=== PATIENT | male | born 1975 | race Caucasian/White ===

== ENCOUNTER 2016-09-08 15:27 | Observation (INO) | payer SELFPAY ==
[~2016-09-08] VITALS: Ht 177.8 cm; Wt 66.0 kg
[2016-09-08 15:28] VITALS: BP 113/64; PULSE 95; RESP 15; TEMP 98.2; O2SAT 96
[2016-09-08 15:47] VITALS: BP 109/57; PULSE 81; RESP 21; TEMP 98.5; O2SAT 100
[2016-09-08] MEDS ORDERED: SODIUM CHLORIDE 0.9% FLUSH 5 ML FLUSH IVF PRN ×2 (16:00→20:45)
[2016-09-08] MEDS ORDERED: SODIUM CHLOR 0.9% 1000 ML INJ 1,000 ML IV ONE (16:00)
--- NOTE | 2016-09-08 16:07 | PD ---
HPI Chief Complaint: Cold / Flu Symptoms Time Seen by Provider: 15:39 Travel History International Travel<30 days: No Contact w/Intl Traveler<30days: No History of Present Illness HPI Patient is a 40-year-old male who presents to emergency room with complaints of cough and congestion for the past 3 months. Patient reports that for the past few months, he has had a nonproductive cough, except for the past 3 days, his cough has been more productive and he had noticed specks of blood in his mucous. Reports that along with his cough, he has been having chest pain. Reports that every time he coughs, his chest hurts him. Reports that he was seen in [facility] on august 10 and was diagnosed with bronchitis as he did have a cough. Reports that he was prescribed Levaquin and was given scripts for antibiotics as well as steroids - reports that he never got the scripts filled because it cost too much. Reports that chest pain feels like a tight stabbing tearing sensation to his chest. Reports that he only has chest pains with his cough. Denies diaphoresis or nausea or vomiting with symptoms. Reports no recent travels/trips. Denies fever/chills. 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 Denies hx of cad, hypertension, hyperlipidemia. Denies hx of smoking or alcohol abuse. No family hx of early CAD or ID in the past. PFSH Past Medical History Arthritis: No Asthma: No Autoimmune Disease: No Blood Disorders: No Anxiety: No Depression: No Heart Rhythm Problems: No Cancer: No Cardiovascular Problems: No High Cholesterol: No Chemotherapy: No Chest Pain: No Congestive Heart Failure: No COPD: No Cerebrovascular Accident: No Diabetes: No Diminished Hearing: No Endocrine: No GERD: No Glaucoma: No Genitourinary: No Headaches: No Hepatitis: No Hiatal Hernia: No Immune Disorder: No Kidney Stones: No Musculoskeletal: No Neurologic: No Psychiatric: No Reproductive: No Respiratory: No Migraines: No Myocardial Infarction: No Radiation Therapy: No Renal Failure: No Seizures: No Sickle Cell Disease: No Sleep Apnea: No Thyroid Disease: No Ulcer: No Past Surgical History Abdominal Surgery: No AICD: No Appendectomy: No Arteriovenous Shunt: No Cardiac Surgery: No Cholecystectomy: No Ear Surgery: No Endocrine Surgery: No Eye Surgery: No Genitourinary Surgery: No Gynecologic Surgery: No Insulin Pump: No Joint Replacement: No Oral Surgery: No Pacemaker: No Thoracic Surgery: No Other Surgery: Yes (facial bone repair) Family History Family History: Negative Social History Alcohol Use: No Tobacco Use: No Substance Use: No Allergies-Medications (Allergen,Severity, Reaction): Coded Allergies: Tubbs Pepper (Verified Allergy, Mild, 06/21/16) rash Uncoded Allergies: RED AND YELLOW TUBBS PEPPERS (Allergy, Mild, 03/25/06) Reported Meds & Prescriptions Reported Meds & Active Scripts Active No Active Prescriptions or Reported Medications Review of Systems General / Constitutional: No: Fever Eyes: No: Visual changes HENT: No: Headaches Cardiovascular: Positive: Chest Pain or Discomfort, No: Diaphoresis Respiratory: Positive: Cough, Shortness of Breath, Hemoptysis, Pleuritic Pain, No: Night Sweats Gastrointestinal: No: Nausea, Vomiting, Diarrhea, Abdominal Pain Genitourinary: No: Dysuria Musculoskeletal: No: Pain Skin: No Rash Neurologic: No: Weakness Psychiatric: No: Depression Endocrine: No: Polydipsia Hematologic/Lymphatic: No: Easy Bruising Physical Exam Narrative GENERAL: NAD SKIN: Warm and dry. HEAD: Atraumatic. Normocephalic. EYES: No injection or drainage. ENT: No nasal bleeding or discharge. Mucous membranes pink and moist. NECK: Trachea midline. No JVD. CARDIOVASCULAR: Regular rate and rhythm. No murmur appreciated. RESPIRATORY: No accessory muscle use. Clear to auscultation. Breath sounds equal bilaterally. GASTROINTESTINAL: Abdomen soft, non-tender, nondistended. Hepatic and splenic margins not palpable. MUSCULOSKELETAL: No obvious deformities. No clubbing. No cyanosis. No edema. NEUROLOGICAL: Awake and alert. Normal speech. PSYCHIATRIC: Appropriate mood and affect; insight and judgment normal. Data Data Last Documented VS Vital Signs Date Time Temp Pulse Resp B/P Pulse Ox O2 Delivery O2 Flow Rate FiO2 09/08/16 17:39 98.6 93 14 100/56 99 Room Air Orders Electrocardiogram (09/08/16 15:50) Complete Blood Count With Diff (09/08/16 15:50) Comprehensive Metabolic Panel (09/08/16 15:50) Influenzae A/B Antigen (09/08/16 15:50) Chest, Single Ap (09/08/16 15:50) Ecg Monitoring (09/08/16 15:50) Iv Access Insert/Monitor (09/08/16 15:50) Oximetry (09/08/16 15:50) Sodium Chloride 0.9% Flush (Ns Flush) (09/08/16 16:00) B-Type Natriuretic Peptide (09/08/16 15:50) Ckmb (Isoenzyme) Profile (09/08/16 15:50) D-Dimer (09/08/16 15:50) Prothrombin Time / Inr (Pt) (09/08/16 15:50) Act Partial Throm Time (Ptt) (09/08/16 15:50) Troponin I (09/08/16 15:50) Sodium Chlor 0.9% 1000 Ml Inj (Ns 1000 M (09/08/16 16:00) Methylprednisolone So Succ Inj (Solumedr (09/08/16 16:15) Albuterol-Ipratropium Neb (Duoneb Neb) (09/08/16 16:15) CKMB (09/08/16 15:55) CKMB% (09/08/16 15:55) Cta Thor Abd Aorta W Iv C W3d (09/08/16 16:37) Us Leg Venous Doppler Bilat (09/08/16 ) Iohexol 350 Inj (Omnipaque 350 Inj) (09/08/16 17:55) Electrocardiogram (09/08/16 ) Aspirin (Aspirin) (09/08/16 19:15) Admit Order (Ed Use Only) (09/08/16 19:24) Labs Laboratory Tests Test 09/08/16 15:55 White Blood Count 5.3 TH/MM3 Red Blood Count 4.99 MIL/MM3 Hemoglobin 14.5 GM/DL Hematocrit 42.6 % Mean Corpuscular Volume 85.4 FL Mean Corpuscular Hemoglobin 29.1 PG Mean Corpuscular Hemoglobin 34.0 % Concent Red Cell Distribution Width 14.4 % Platelet Count 247 TH/MM3 Mean Platelet Volume 7.4 FL Neutrophils (%) (Auto) 56.2 % Lymphocytes (%) (Auto) 25.4 % Monocytes (%) (Auto) 14.4 % Eosinophils (%) (Auto) 3.5 % Basophils (%) (Auto) 0.5 % Neutrophils # (Auto) 3.0 TH/MM3 Lymphocytes # (Auto) 1.4 TH/MM3 Monocytes # (Auto) 0.8 TH/MM3 Eosinophils # (Auto) 0.2 TH/MM3 Basophils # (Auto) 0.0 TH/MM3 CBC Comment DIFF FINAL Differential Comment Prothrombin Time 11.0 SEC Prothromb Time International 1.0 RATIO Ratio Activated Partial 30.2 SEC Thromboplast Time D-Dimer Quantitative (PE/DVT) 0.32 MG/L FEU Sodium Level 138 MEQ/L Potassium Level 3.7 MEQ/L Chloride Level 102 MEQ/L Carbon Dioxide Level 28.2 MEQ/L Anion Gap 8 MEQ/L Blood Urea Nitrogen 14 MG/DL Creatinine 1.17 MG/DL Estimat Glomerular Filtration 69 ML/MIN Rate Random Glucose 78 MG/DL Calcium Level 8.7 MG/DL Total Bilirubin 0.6 MG/DL Aspartate Amino Transf 23 U/L (AST/SGOT) Alanine Aminotransferase 24 U/L (ALT/SGPT) Alkaline Phosphatase 94 U/L Total Creatine Kinase 490 U/L Creatine Kinase MB 2.0 NG/ML Creatine Kinase MB % 0.4 % Troponin I LESS THAN 0.02 NG/ML B-Type Natriuretic Peptide 4 PG/ML Total Protein 8.0 GM/DL Albumin 4.0 GM/DL MDM Medical Decision Making Medical Screen Exam Complete: Yes Emergency Medical Condition: Yes Interpretation(s) Vital Signs Date Time Temp Pulse Resp B/P Pulse Ox O2 Delivery O2 Flow Rate FiO2 09/08/16 15:28 98.2 95 15 113/64 96 Differential Diagnosis acs, pneumonia, malignancy, influenza, arrhythmia, TB, pneumothorax, PE, Aortic dissection Narrative Course patient is a 40 year old male who presents to ER with c/o of cough x 3 months. Reports that for the past 3 days, he has noticed streaks of blood in his mucous and has been having chest pain from coughing so much. Reports that his chest only hurts him when he coughs. VSS. EKG, lab work, xray of chest ordered. Will continue to monitor patient. cta ordered to evaluate for possible aortic dissection as patient describes his chest pain as a "tearing sensation to my chest" ekg with nsr at 75bpm, qt/qtc: 337/366, there is st seg elevation II, III, aVF, V4-v6, no reciprocal changes, pr depression n EKG - pt only with chest pain with cough, pt adamently denies chest pain at rest or without coughing. CE were ordered. I do not feel that patient is having a STEMI at this time given chest pain only occurs with cough. With recent history of untreated lung infection (was seen on aug 10 and was prescribed antibiotics which he didn't fill ) - most likely related to pericarditis vs. early repol. I have asked patient a number of times if he is having any chest pain at rest and patient adamantly denies this. cbc WBC 5.3 Hemoglobin 14.5 Hematocrit 42.6 Platelets 247 CMP Sodium 138 Chloride 102 Potassium 3.7 Carbon dioxide 28.2 BUN 14 Creatinine 1.17 Total CK 490 Troponin less than 0.02 Influenza A and B negative Last Impressions Aorta CTA 09/08/16 1637 Signed Impressions: Service Date/Time: Thursday, September 08, 2016 17:44 - CONCLUSION: Normal examination for a patient of this age. Alex Greenwood MD Chest X-Ray 09/08/16 1550 Signed Impressions: Service Date/Time: Thursday, September 08, 2016 16:33 - CONCLUSION: No acute disease. Alex Greenwood MD Lower Extremity Ultrasound 09/08/16 0000 Signed Impressions: Service Date/Time: Thursday, September 08, 2016 18:15 - CONCLUSION: Normal examination. Alex Greenwood MD Patient with no chest pain at rest, patient with abnormal EKG. I reviewed all labs and studies with pt in detail. Agrees to admission. Plan to admit to family practice service. Case reviewed with Dr. Garrison, except patient to service. Repeat EKG at 1920: Normal sinus rhythm at 74 beats for minute, QT/QTc 340/367, no st seg changes. Consideration for PE - Doppler ultrasound of legs were negative. CTA negative Diagnosis Primary Impression: Chest pain Qualified Code: R07.1 - Chest pain on breathing Additional Impression: ST segment changes on electrocardiogram Admitting Information Admitting Physician Requests: Admit Scripts No Active Prescriptions or Reported Meds Deanna Anderson DO Sep 08, 2016 16:07
[2016-09-08 16:15] LABS: BASOPHIL % 0.5 % (0.0-2.0); EOSINOPHIL # 0.2 TH/MM3 (0-0.4); EOSINOPHIL % 3.5 % (0.0-4.0); HEMATOCRIT 42.6 % (39.0-51.0); HEMO FLAGS DIFF FINAL; LYMPH % 25.4 % (9.0-44.0); LYMPHOCYTE # 1.4 TH/MM3 (1.0-4.8); MEAN CELL VOLUME 85.4 FL (80.0-100.0); MEAN CORPUSCULAR HEMOGLOBIN 29.1 PG (27.0-34.0); MONO % 14.4 % (0.0-8.0); NEUT % 56.2 % (16.0-70.0); PLATELET COUNT 247 TH/MM3 (150-450); RED BLOOD COUNT 4.99 MIL/MM3 (4.50-5.90); RED CELL DISTRIBUTION WIDTH 14.4 % (11.6-17.2); WHITE BLOOD COUNT 5.3 TH/MM3 (4.0-11.0)
[2016-09-08] MEDS ORDERED: RESP: ALBUTEROL 2.5 MG/IPRATROPIUM 0.5 MG NEB (SCH) INH ONE (16:15)
[2016-09-08] MEDS ORDERED: methylPREDNISolone SOD SUCC 125 MG/2 ML VIAL IVP ONE (16:15)
[2016-09-08 16:33] LABS: ALT (GPT) 24 U/L (12-78); ANION GAP 8 MEQ/L (5-15); APTT (PATIENT) 30.2 SEC (24.3-30.1); AST (GOT) 23 U/L (15-37); BICARBONATE 28.2 MEQ/L (21.0-32.0); BLOOD UREA NITROGEN 14 MG/DL (7-18); CHLORIDE 102 MEQ/L (98-107); GLOMERULAR FILTRATION RATE 69 ML/MIN (>89); POTASSIUM 3.7 MEQ/L (3.5-5.1); SODIUM (NA) 138 MEQ/L (136-145)
[2016-09-08 16:37] LABS: ALKALINE PHOSPHATASE 94 U/L (45-117); CREATINE KINASE 490 U/L (39-308); TOTAL BILIRUBIN ADULT 0.6 MG/DL (0.2-1.0)
--- NOTE | 2016-09-08 17:33 | RADRPT ---
EXAM DATE/TIME: 09/08/2016 16:33 [facility] COMPARISON: No previous studies available for comparison. INDICATIONS : Coughing up blood x1day. Pt has had a cough for 3 months. MEDICAL HISTORY : None. SURGICAL HISTORY : None. ENCOUNTER: Initial ACUITY: 1 day PAIN SCORE: 0/10 LOCATION: Bilateral chest FINDINGS: A single view of the chest demonstrates the lungs to be symmetrically aerated without evidence of mas s, infiltrate or effusion. The cardiomediastinal contours are unremarkable. Osseous structures are intact. CONCLUSION: No acute disease. Alex Greenwood MD on September 08, 2016 at 17:30 Board Certified Radiologist. This report was verified electronically.
[2016-09-08 17:39] VITALS: BP 100/56; PULSE 93; RESP 14; TEMP 98.6; O2SAT 99
[2016-09-08] MEDS ORDERED: IOHEXOL 350 MG/ML 10 ML VIAL (for RAD DIAG) IV ONE (17:55)
--- NOTE | 2016-09-08 18:37 | RADRPT ---
EXAM DATE/TIME: 09/08/2016 17:44 [facility] COMPARISON: No previous studies available for comparison. INDICATIONS : Coughing up blood; coughing X 3 months. IV CONTRAST: 95 cc Omnipaque 350 (iohexol) IV RADIATION DOSE: 25.48 CTDIvol (mGy) MEDICAL HISTORY : None SURGICAL HISTORY : None. ENCOUNTER: Initial ACUITY: 3 months PAIN SCALE: 4/10 LOCATION: chest TECHNIQUE: Volumetric scanning was performed using a multi-row detector CT scanner. The data was post processed with a variety of visualization algorithms including full volume maximum intensity projection, multi -planar sliding thin slab reformation, curved planar reformation, and surface rendering techniques. Using automated exposure control and adjustment of the mA and/or kV according to patient size, radiat ion dose was kept as low as reasonably achievable to obtain optimal diagnostic quality images. FINDINGS: LUNGS: There is no consolidation or pneumothorax. No concerning pulmonary nodule is visualized. No pleural fluid is present. MEDIASTINUM: No abnormally enlarged lymph nodes by CT criteria. No axillary or hilar abnormalities are identified. ABDOMEN: The liver and spleen are free of focal defects. The gallbladder and pancreas demonstrate no abnormali ty. The adrenal glands are normal. The kidneys demonstrate no evidence of solid renal mass or hydrone phrosis. No free fluid or abdominal masses are identified. No para-aortic adenopathy is seen. PELVIS: No evidence of free fluid or pelvic mass. No abnormally enlarged inguinal or retroperitoneal lymph no ginna are present. The bladder is unremarkable. THORACIC AORTA: The thoracic aortic root is normal with normal branching of the great vessels. There is no evidence of aneurysm or dissection. ABDOMINAL AORTA: The aorta is normal in caliber without aneurysm or dissection. The renal arteries are patent bilater ally. The proximal celiac and superior mesenteric arteries are patent and normal in diameter. PELVIC VESSELS: The internal iliac and external iliac vessels are patent without aneurysm or stenosis. CONCLUSION: Normal examination for a patient of this age. Alex Greenwood MD on September 08, 2016 at 18:25 Board Certified Radiologist. This report was verified electronically.
--- NOTE | 2016-09-08 19:02 | RADRPT ---
EXAM DATE/TIME: 09/08/2016 18:15 [facility] COMPARISON: No previous studies available for comparison. INDICATIONS : Thrombosis. MEDICAL HISTORY : Kidney transplant. SURGICAL HISTORY : Eye surgery. ENCOUNTER: Initial ACUITY: 1 day PAIN SCORE: 0/10 LOCATION: Bilateral legs. TECHNIQUE: Venous ultrasound of the left and right leg was performed from the inguinal ligament to the proximal calf. Real-time, color Doppler and spectral tracing, compression and augmentation techniques were us ed. FINDINGS: RIGHT LEG: There is normal compressibility of the deep venous system from the inguinal region to the proximal ca lf. No echogenic clot is seen in the lumen of the common femoral, femoral, popliteal, and posterior tibial veins. There is a normal response of the venous system to proximal and distal augmentation an d respiration. LEFT LEG: There is normal compressibility of the deep venous system from the inguinal region to the proximal ca lf. No echogenic clot is seen in the lumen of the common femoral, femoral, popliteal, and posterior tibial veins. There is a normal response of the venous system to proximal and distal augmentation an d respiration. CONCLUSION: Normal examination. Alex Greenwood MD on September 08, 2016 at 19:00 Board Certified Radiologist. This report was verified electronically.
[2016-09-08] MEDS ORDERED: ASPIRIN 325 MG TAB PO ONE (19:15)
[2016-09-08] MEDS: SODIUM CHLORIDE 0.9% FLUSH 5 ML FLUSH IVF SCH (20:44)
[2016-09-08 21:40] LABS: CREATINE KINASE 557 U/L (39-308)
--- NOTE | 2016-09-08 21:42 | HHI.HP ---
HPI Service Family Medicine Primary Care Physician No Primary Care Physician Admission Diagnosis Chest pain, abnormal ekg Diagnoses: International Travel<30 Days: No Contact w/Intl Traveler<30days: Yes Known Affected Area: No History of Present Illness 40-year-old homeless nonsmoking male with no past medical history presenting with a 3 to four-day history of pleuritic chest pain and one episode of hemoptysis. For the last couple months, he has had an intermittent dry cough. At one point in early August, he sought care at [facility] and was diagnosed with bronchitis, but cough has persisted. He denies any fevers or chills, night sweats. About 3 days ago, his cough became associated with a tearing chest pain. He also began having a burning chest pain on deep inspiration. He does not have chest pain at rest or when he is not coughing or breathing deeply. He has not had shortness of breath. Around the same time, he also experienced increasing upper respiratory symptoms including rhinorrhea and sneezing. The symptoms were not particularly concerning until this morning when he experienced a single episode of coughing up blood. The volume is unclear, but he says it is definitely less than a tablespoon, and he does not know whether it appeared to be just streaks of blood or coffee-ground like because "he spit it on the ground and didn't look at it". During all this time, he has not taken any medication to alleviate symptoms except Sudafed yesterday for the upper respiratory issues. He has been taking Rosado's cough drops about 3 bags daily to alleviate his cough. 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 (David Earl MD R1) Review of Systems Constitutional: DENIES: Fever Endocrine: DENIES: Polydipsia Eyes: COMPLAINS OF: Vision loss (Intermittent, right eye, after prior surgery) , DENIES: Blurred vision Ears, nose, mouth, throat: COMPLAINS OF: Nasal discharge, Running Nose, DENIES : Throat pain, Hoarseness Respiratory: COMPLAINS OF: Cough, Hemoptysis, DENIES: Sputum production, Shortness of breath Cardiovascular: COMPLAINS OF: Chest pain, DENIES: Palpitations, Dyspnea on Exertion, Lower Extremity Edema, Orthopnea Gastrointestinal: DENIES: Abdominal pain Genitourinary: DENIES: Dysuria Musculoskeletal: DENIES: Muscle aches Integumentary: DENIES: Rash Hematologic/lymphatic: DENIES: Bruising Neurologic: DENIES: Headache (David Earl MD R1) Past Family Social History Past Medical History No known chronic medical conditions Past Surgical History Orthopedic surgery on the right orbit due to traumatic fracture, pins and screws in place Reported Medications Cial[place] and Sudafed symptomatically, no chronic medications (David Earl MD R1) Allergies: Coded Allergies: Tubbs Pepper (Verified Allergy, Mild, 06/21/16) rash Uncoded Allergies: RED AND YELLOW TUBBS PEPPERS (Allergy, Mild, 03/25/06) Active Ordered Medications Current Medications Medications (Trade) Dose Ordered Sig/Nishant Route Start Time Stop Time Status Last Admin (NS Flush) 2 ml BID IVF 09/08/16 21:00 09/08/16 20:44 (NS Flush) 2 ml UNSCH PRN IVF 09/08/16 20:45 (Heparin Inj) 5,000 units Q8HR SQ 09/08/16 22:00 Family History Unknown family history (patient is the black sheep of the family) Social History Tobacco: Does not smoke Alcohol: Does not drink Drugs: Does not use illicit drugs Living: Lives in the back of his car 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 Cool and dry. Bilateral digital clubbing noted. HEAD: NC/AT EYES: PERRL. EOMI. No conjunctival injection or drainage. ENT: MMM, OP without erythema, tonsillar swelling, or exudate. NECK: Supple, no lymphadenopathy. No JVD. CARDIOVASCULAR: NRRR. Normal S1/S2. No murmur, rub, or gallop. CHEST: Reproducible chest pain on palpation of chest wall muscles. Lungs CTAB. No crackles or wheezes. GASTROINTESTINAL: Abdomen soft, non-distended, minimally tender to palpation in the central pelvis. No hepato-splenomegaly or palpable masses. MUSCULOSKELETAL: Extremities without cyanosis or edema. NEUROLOGICAL: Awake and alert. Cranial nerves II through XII grossly intact. Moves all extremities without difficulty. Normal speech. Laboratory Laboratory Tests Test 09/08/16 09/08/16 15:55 21:10 White Blood Count 5.3 Red Blood Count 4.99 Hemoglobin 14.5 Hematocrit 42.6 Mean Corpuscular Volume 85.4 Mean Corpuscular Hemoglobin 29.1 Mean Corpuscular Hemoglobin 34.0 Concent Red Cell Distribution Width 14.4 Platelet Count 247 Mean Platelet Volume 7.4 Neutrophils (%) (Auto) 56.2 Lymphocytes (%) (Auto) 25.4 Monocytes (%) (Auto) 14.4 Eosinophils (%) (Auto) 3.5 Basophils (%) (Auto) 0.5 Neutrophils # (Auto) 3.0 Lymphocytes # (Auto) 1.4 Monocytes # (Auto) 0.8 Eosinophils # (Auto) 0.2 Basophils # (Auto) 0.0 CBC Comment DIFF FINAL Differential Comment Prothrombin Time 11.0 Prothromb Time International 1.0 Ratio Activated Partial 30.2 Thromboplast Time D-Dimer Quantitative (PE/DVT) 0.32 Sodium Level 138 Potassium Level 3.7 Chloride Level 102 Carbon Dioxide Level 28.2 Anion Gap 8 Blood Urea Nitrogen 14 Creatinine 1.17 Estimat Glomerular Filtration 69 Rate Random Glucose 78 Calcium Level 8.7 Total Bilirubin 0.6 Aspartate Amino Transf 23 (AST/SGOT) Alanine Aminotransferase 24 (ALT/SGPT) Alkaline Phosphatase 94 Total Creatine Kinase 490 557 Creatine Kinase MB 2.0 Creatine Kinase MB % 0.4 Troponin I LESS THAN 0.02 LESS THAN 0.02 B-Type Natriuretic Peptide 4 Total Protein 8.0 Albumin 4.0 Date/Time Procedure Status Source Growth 09/08/16 15:55 Influenza Types A,B Antigen ([place]) - Final Complete Nasal Aspirate NEGATIVE FOR FLU A AND B ANTIGEN.... (David Earl MD R1) Result Diagram: 09/08/16 1555 09/08/16 1555 Imaging Last Impressions Aorta CTA 09/08/16 1637 Signed Impressions: Service Date/Time: Thursday, September 08, 2016 17:44 - CONCLUSION: Normal examination for a patient of this age. Alex Greenwood MD Chest X-Ray 09/08/16 1550 Signed Impressions: Service Date/Time: Thursday, September 08, 2016 16:33 - CONCLUSION: No acute disease. Alex Greenwood MD Lower Extremity Ultrasound 09/08/16 0000 Signed Impressions: Service Date/Time: Thursday, September 08, 2016 18:15 - CONCLUSION: Normal examination. Alex Greenwood MD (David Earl MD R1) Assessment and Plan Assessment and Plan 40-year-old homeless nonsmoking male with no past medical history presenting with: #1 chest pain Given association with cough and reproducibility of chest pain on chest wall exam, likely etiology is costochondritis. Initial EKG showing questionable diffuse ST segment elevation approximately 1 mm which could indicate pericarditis, however no other clinical features apart from chest pain. No suspicion of cocaine abuse. Initial troponin less than 0.02 Electrolytes within normal limits Chest x-ray showing no acute pulmonary or cardiac process CTA aorta negative for aortic dissection D-dimer below age-adjusted cut-off * Ibuprofen 800 mg Q8H for pain control * Trend troponin, EKG to rule out ACS and myopericarditis #2 cough with hemoptysis Has been going on for 1-2 months, now with small-volume hemoptysis. Likely etiology is lingering viral cough versus GERD versus postnasal drip from allergy symptoms. Chest x-ray showing no acute pulmonary process Hemoglobin within normal limits * Repeat hemoglobin in the morning * Tessalon for cough suppression as needed * Rosado's for symptomatic relief of throat irritation * PPD to rule out tuberculosis (although chest x-ray negative, could still have TB given risk factors and symptomatology) #3 digital clubbing Likely idiopathic in setting of no known cardiopulmonary disease and relatively benign exam BNP 4 * If respiratory symptoms worsen, consider further workup #4 FEN/PPX Fluids: PO only Elecs: Monitor and replete PRN Nutrition: Diet regular basic DVT: Heparin 5000 units SQ Q8H sdw Dr. Sameer Garrison Code Status Full code (David Earl MD R1) Attending Attestation THIS CASE WAS DISCUSSED WITH THE RESIDENT PHYSICIAN. I HAVE REVIEWED THE RECORD AND AGREE WITH THE ABOVE NOTE AND PLAN OF CARE WAS DISCUSSED. I HAVE AUTHORIZED THE ORDER FOR PLACEMENT IN OUT-PATIENT OBSERVATION STATUS. (Garry Mukherjee MD) Problem List: (1) Chest pain Status: Acute (2) Cough with hemoptysis Status: Acute (3) Clubbing of fingers Status: Acute (David Earl MD R1) Problem Qualifiers (1) Chest pain: Qualified Code: R07.1 - Chest pain on breathing David Earl MD R1 Sep 08, 2016 21:42 Garry Mukherjee MD Sep 09, 2016 11:38
[2016-09-08 21:48] VITALS: BP 141/92; PULSE 72; RESP 18; O2SAT 96
[2016-09-08 21:53] LABS: CKMB 2.6 NG/ML (0.5-3.6)
[2016-09-08] MEDS ORDERED: MENTHOL LOZENGE BUCCAL PRN (22:00)
[2016-09-08] MEDS ORDERED: BENZONATATE 100 MG CAP PO PRN (22:00)
[2016-09-08] MEDS: HEPARIN SODIUM - SQ 10,000 UNITS/ML VIAL SQ SCH (22:05)
[2016-09-08 22:15] VITALS: O2SAT 98
[2016-09-08] MEDS: IBUPROFEN 800 MG TAB PO SCH (22:15)
[2016-09-08 22:58] VITALS: BP 101/55; PULSE 75; RESP 20; TEMP 98.6; O2SAT 95
[2016-09-09] VITALS: PULSE 68
[2016-09-09 04:00] VITALS: BP 104/54; PULSE 68; RESP 18; TEMP 97.8; O2SAT 97
[2016-09-09] MEDS: IBUPROFEN 800 MG TAB PO SCH ×2 (05:35→13:54)
[2016-09-09] MEDS: HEPARIN SODIUM - SQ 10,000 UNITS/ML VIAL SQ SCH ×2 (05:35→13:55)
[2016-09-09 05:58] LABS: EOSINOPHIL % 0.1 % (0.0-4.0); HEMO FLAGS DIFF FINAL; LYMPH % 11.5 % (9.0-44.0); LYMPHOCYTE # 0.7 TH/MM3 (1.0-4.8); MEAN CELL VOLUME 85.9 FL (80.0-100.0); MEAN CORPUSCULAR HEMOGLOBIN 28.9 PG (27.0-34.0); MEAN CORPUSCULAR HGB CONC 33.6 % (32.0-36.0); MONO % 2.8 % (0.0-8.0); NEUT % 85.6 % (16.0-70.0); PLATELET COUNT 235 TH/MM3 (150-450); RED BLOOD COUNT 4.66 MIL/MM3 (4.50-5.90); RED CELL DISTRIBUTION WIDTH 14.6 % (11.6-17.2); WHITE BLOOD COUNT 5.9 TH/MM3 (4.0-11.0)
[2016-09-09 06:28] LABS: ANION GAP 8 MEQ/L (5-15); BICARBONATE 26.8 MEQ/L (21.0-32.0); BLOOD UREA NITROGEN 15 MG/DL (7-18); CHLORIDE 105 MEQ/L (98-107); CREATINE KINASE 582 U/L (39-308); GLOMERULAR FILTRATION RATE 90 ML/MIN (>89); HDL CHOLESTEROL 38.4 MG/DL (40.0-60.0); LDL CHOLESTEROL 176 MG/DL (0-99); POTASSIUM 4.7 MEQ/L (3.5-5.1); SODIUM (NA) 140 MEQ/L (136-145)
[2016-09-09 06:54] LABS: CKMB 2.6 NG/ML (0.5-3.6)
[2016-09-09 07:31] VITALS: PULSE 69
[2016-09-09] MEDS: SODIUM CHLORIDE 0.9% FLUSH 5 ML FLUSH IVF SCH (09:08)
[2016-09-09] MEDS ORDERED: BENZ100 PO (09:20)
--- NOTE | 2016-09-09 09:22 | HHI.DCPOC ---
Discharge Care Plan Diagnosis: (1) Cough with hemoptysis Goals to Promote Your Health * To prevent worsening of your condition and complications * To maintain your health at the optimal level Directions to Meet Your Goals Take your medications as prescribed Follow your dietary instruction Follow activity as directed Keep your appointments as scheduled Take your immunizations and boosters as scheduled If your symptoms worsen call your PCP, if no PCP go to Urgent Care Center or Emergency Room Smoking is Dangerous to Your Health. Avoid second hand smoke Call the 24-hour hour crisis hotline for domestic abuse at [place] Smith MD R3 Sep 09, 2016 09:22
[2016-09-09 09:27] VITALS: BP 86/49; PULSE 68; RESP 18; TEMP 97.2; O2SAT 98
[2016-09-09 09:47] VITALS: O2SAT 95
[2016-09-09] MEDS ORDERED: RESP: ALBUTEROL 2.5 MG/IPRATROPIUM 0.5 MG NEB (PRN) NEB (10:00)
[2016-09-09] MEDS ORDERED: methylPREDNISolone SOD SUCC 40 MG/1 ML VIAL IV PUSH ONE (10:30)
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
--- NOTE | 2016-09-09 11:46 | EKG ---
Date Performed: 09/08/2016 Time Performed: 21:18:23 PTAGE: 40 years EKG: Sinus rhythm WITH SINUS ARRHYTHMIA EARLY REPOLARIZATION BORDERLINE ECG NO PREVIOUS TRACING DOCTOR: Jose Manuel Goddard Interpretating Date/Time 09/09/2016 11:43:07
--- NOTE | 2016-09-09 11:47 | EKG ---
Date Performed: 09/08/2016 Time Performed: 19:20:06 PTAGE: 40 years EKG: Sinus rhythm NORMAL ECG PREVIOUS TRACING : 09/08/2016 16.20 DOCTOR: Jose Manuel Goddard Interpretating Date/Time 09/09/2016 11:44:28
--- NOTE | 2016-09-09 11:50 | EKG ---
Date Performed: 09/08/2016 Time Performed: 16:20:04 PTAGE: 40 years EKG: Sinus rhythm ST ELEVATION, PROBABLY EARLY REPOLARIZATION BORDERLINE ECG NO PREVIOUS TRACING DOCTOR: Jose Manuel Goddard Interpretating Date/Time 09/10/2016 07:28:39
[2016-09-09] MEDS ORDERED: LORA-361 PO (11:51)
[2016-09-09 11:52] VITALS: BP 90/52; PULSE 60; RESP 18; TEMP 96.7; O2SAT 98
[2016-09-09] MEDS ORDERED: PANT20 PO (11:53)
[2016-09-09] MEDS ORDERED: IBUP800T23 PO ×2 (16:34→16:35)
[2016-09-10] MEDS ORDERED: PANTOPRAZOLE SOD 20 MG DELAYED RELEASE TAB PO SCH (09:00)
[2016-09-10] MEDS ORDERED: LORATADINE 10 MG TAB PO SCH (09:00)
[2016-09-10] MEDS ORDERED: PNEUMOCOCCAL POLYVALENT INJ 25 MCG/0.5 ML SYR IM ONE (10:00)
[2016-09-10] MEDS ORDERED: INFLUENZA VIRUS VACCINE (QUADRIVALENT) 0.5 ML SYR IM ONE (10:00)
[2016-09-11 15:46] LABS: MITOGEN MINUS NIL RESULT 7.16 IU/mL (()); NIL RESULT 0.02 IU/mL (()); QUANTIFERON TB GOLD RESULT Negative (Negative)
== END 2016-09-09 16:50 | disposition home or self-care (01) ==
LOC: NEPE 15:27 → NEDA 19:26 → INTOOBSV 19:26 → NEPGCP 22:42 → NEPHCDU 09-09 02:18 → UNDODISIN 09-09 16:50
PROVIDERS: ADMIT Family Medicine; ATTEND Family Medicine
DX: R07.1 Chest pain on breathing (principal); R94.31 Abnormal electrocardiogram [ECG] [EKG]; R04.2 Hemoptysis; R68.3 Clubbing of fingers; Z59.0 Homelessness
CPT/HCPCS: 71010; 71275; 74174; 80048; 80053; 80061; 82550; 82552; 83880; 84443; 84484; 85025; 85379; 85610; 85730; 86480; 87804; 93005; 93970; 94664; 96361; 96374; 97163; 99285; G0378; J1644; J2920; J2930; J7030; Q9967

== ENCOUNTER 2016-10-21 18:07 | Emergency (ER) | payer SELFPAY ==
[~2016-10-21 18:07] MED LIST: BENZ100 PO; IBUP800T23 PO; LORA-361 PO; PANT20 PO
[2016-10-21 18:50] VITALS: BP 108/58; PULSE 72; RESP 18; TEMP 98.4; O2SAT 96
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
[2016-10-21] MEDS ORDERED: KETOROLAC TROMETHAMINE 60 MG/2 ML (IM) VIAL IM ONE (19:00)
[2016-10-21] MEDS ORDERED: ORPHENADRINE INJ 60 MG/2 ML AMP IM ONE (19:00)
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
[2016-10-21] MEDS ORDERED: DICL50TA PO (20:07)
[2016-10-21] MEDS ORDERED: ROBA750T PO (20:07)
== END 2016-10-21 21:11 | disposition home or self-care (01) ==
LOC: NEPA 18:07
DX: S16.1XXA Strain of muscle, fascia and tendon at neck level, initial encounter (principal); M54.5 Low back pain; V43.52XA Car driver injured in collision with other type car in traffic accident, initial encounter; Y93.89 Activity, other specified; Y92.410 Unspecified street and highway as the place of occurrence of the external cause; Y99.9 Unspecified external cause status
CPT/HCPCS: 72072; 72100; 72125; 96372; 99284; J1885; J2360

== ENCOUNTER 2017-02-09 18:24 | Emergency (ER) | payer SELFPAY ==
[~2017-02-09 18:24] MED LIST changes: +DICL50TA PO; +ROBA750T PO
[2017-02-09 18:26] VITALS: BP 118/60; PULSE 109; RESP 17; TEMP 103; O2SAT 97
[2017-02-09 19:28] LABS: AUTOMATED NEUTROPHIL # 7.2 TH/MM3 (1.8-7.7); BASOPHIL % 0.3 % (0.0-2.0); EOSINOPHIL % 0.1 % (0.0-4.0); HEMATOCRIT 43.2 % (39.0-51.0); HEMO FLAGS DIFF FINAL; LYMPH % 10.8 % (9.0-44.0); MEAN CELL VOLUME 84.6 FL (80.0-100.0); MEAN CORPUSCULAR HGB CONC 34.3 % (32.0-36.0); MONO % 8.6 % (0.0-8.0); NEUT % 80.2 % (16.0-70.0); PLATELET COUNT 230 TH/MM3 (150-450); RED CELL DISTRIBUTION WIDTH 14.3 % (11.6-17.2)
[2017-02-09 19:53] LABS: BLOOD, URINE NEG (NEG); COMMENT (UR) CULT NOT INDICATED; CULTURE IF INDICATED CULT NOT INDICATED; GLUCOSE,URINE NEG (NEG); KETONE, URINE NEG (NEG); MUCUS URINE FEW /lpf (OCC); NITRITE,URINE NEG (NEG); SQUAMOUS EPITHELIAL CELL URINE <1 /hpf (0-5); URINE COLOR YELLOW (YELLW/STRAW)
[2017-02-09 19:55] LABS: ANION GAP 9 MEQ/L (5-15); AST (GOT) 24 U/L (15-37); BICARBONATE 26.4 MEQ/L (21.0-32.0); BLOOD UREA NITROGEN 10 MG/DL (7-18); CHLORIDE 99 MEQ/L (98-107); GLOMERULAR FILTRATION RATE 56 ML/MIN (>89); POTASSIUM 3.7 MEQ/L (3.5-5.1); SODIUM (NA) 134 MEQ/L (136-145)
[2017-02-09 19:56] LABS: ALT (GPT) 36 U/L (12-78)
[2017-02-09 19:58] LABS: ALKALINE PHOSPHATASE 90 U/L (45-117); TOTAL BILIRUBIN ADULT 0.9 MG/DL (0.2-1.0)
--- NOTE | 2017-02-09 20:21 | PD ---
HPI Chief Complaint: Fever Time Seen by Provider: 20:18 Travel History International Travel<30 days: No Contact w/Intl Traveler<30days: No Traveled to known affect area: No History of Present Illness HPI The patient is a 41 year old male who presents to the [facility] emergency department with a history of fever, cough, glands swelling and tenderness in the anterior upper neck, and sore throat that began 2 days ago. The patient arrives with a fever, MAXIMUM TEMPERATURE of 103. The patient denies taking any fever reducers over the last 2 days. He reports that he has been staying well-hydrated. He reports that his cough is productive, however he has not looked at what color the sputum is. 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 He denies having any known sick contacts. On review of systems, the patient denies any neck pain, chest pain, shortness of breath, abdominal pain, vomiting, diarrhea, urinary symptoms, or neurologic symptoms. PFSH Past Medical History Narrative Medical The patient's past medical history is reportedly none. Arthritis: No Asthma: No Autoimmune Disease: No Blood Disorders: No Anxiety: No Depression: No Heart Rhythm Problems: No Cancer: No Cardiovascular Problems: No High Cholesterol: No Chemotherapy: No Chest Pain: No Congestive Heart Failure: No COPD: No Cerebrovascular Accident: No Diabetes: No Diminished Hearing: No Endocrine: No GERD: No Glaucoma: No Genitourinary: No Headaches: No Hepatitis: No Hiatal Hernia: No Immune Disorder: No Kidney Stones: No Musculoskeletal: No Neurologic: No Psychiatric: No Reproductive: No Respiratory: No Migraines: No Myocardial Infarction: No Radiation Therapy: No Renal Failure: No Seizures: No Sickle Cell Disease: No Sleep Apnea: No Thyroid Disease: No Ulcer: No Past Surgical History Narrative Surgical The patient's past surgical history is significant for an eye surgery. Abdominal Surgery: No AICD: No Appendectomy: No Arteriovenous Shunt: No Cardiac Surgery: No Cholecystectomy: No Ear Surgery: No Endocrine Surgery: No Eye Surgery: Yes Genitourinary Surgery: No Gynecologic Surgery: No Insulin Pump: No Joint Replacement: No Oral Surgery: No Pacemaker: No Thoracic Surgery: No Other Surgery: Yes (facial bone repair) Social History Alcohol Use: No Tobacco Use: No Substance Use: No Allergies-Medications (Allergen,Severity, Reaction): Coded Allergies: Tubbs Pepper (Verified Allergy, Mild, 06/21/16) rash Uncoded Allergies: RED AND YELLOW TUBBS PEPPERS (Allergy, Mild, 03/25/06) Reported Meds & Prescriptions Reported Meds & Active Scripts Active Robaxin (Methocarbamol) 750 Mg Tab 750 Mg PO TID PRN Diclofenac Potassium 50 Mg Tab 50 Mg PO TID PRN Ibuprofen 800 Mg Tab 800 Mg PO Q8HR PRN Protonix (Pantoprazole Sodium) 20 Mg Tab 20 Mg PO DAILY Claritin (Loratadine) 10 Mg Tab 10 Mg PO DAILY Tessalon Perles (Benzonatate) 100 Mg Cap 100 Mg PO TID PRN Review of Systems Except as stated in HPI: all other systems reviewed are Neg General / Constitutional: Positive: Fever, Chills Eyes: No: Visual changes HENT: Positive: Sore Throat, Congestion, No: Headaches, Rhinorrhea, Neck Stiffness, Neck Pain Cardiovascular: No: Chest Pain or Discomfort Respiratory: Positive: Cough, No: Shortness of Breath Gastrointestinal: No: Abdominal Pain Genitourinary: No: Dysuria Musculoskeletal: No: Pain Skin: No Rash Neurologic: No: Weakness, Focal Abnormalities, Change in Mentation, Slurred Speech, Sensory Disturbance Psychiatric: No: Depression Endocrine: No: Polydipsia Hematologic/Lymphatic: No: Easy Bruising Physical Exam Narrative General: The patient is a well-developed well-nourished male in no acute distress. Head and Neck exam: Head is normocephalic atraumatic. Eyes: EOMI, pupils are equal round and reactive to light. Nose: Midline septum with pink mucous membranes Mouth: Dentition unremarkable. Moist mucus membranes. Posterior oropharynx is mildly erythematous. No tonsillar hypertrophy. No exudates. Uvula midline. Airway patent. Neck: The patient has proximal anterior cervical lymphadenopathy with tenderness on palpation. No nuchal rigidity. No thyromegaly. Cardiovascular: Regular rate and rhythm without murmurs, gallops, or rubs. Lungs: Clear to auscultation bilaterally. No wheezes, rhonchi, or rales. Abdomen: Soft, without tenderness to palpation in all 4 quadrants of the abdomen. No guarding, rebound, or rigidity. Normal bowel sounds are audible. No tenderness on palpation of McBurney's point. Negative Berrios's sign. Extremities: No clubbing, cyanosis, or edema. 2+ pulses in all 4 extremities. No calf tenderness on palpation. Back: No spinous process tenderness to palpation. No costovertebral angle tenderness to palpation. Neurologic Exam: Grossly nonfocal. Skin Exam: No rash noted. Intact skin that is warm and dry. Data Data Last Documented VS Vital Signs Date Time Temp Pulse Resp B/P Pulse Ox O2 Delivery O2 Flow Rate FiO2 02/09/17 18:26 103.0 109 17 118/60 97 Orders Complete Blood Count With Diff (02/09/17 18:29) Comprehensive Metabolic Panel (02/09/17 18:29) Urinalysis - C+S If Indicated (02/09/17 18:29) Lactic Acid Sepsis Protocol (02/09/17 18:29) Blood Culture (02/09/17 18:29) Iv Access Insert/Monitor (02/09/17 18:29) Influenzae A/B Antigen (02/09/17 20:19) Chest, Single Ap (02/09/17 20:19) Strep Culture (Group A) (02/09/17 20:47) Group A Rapid Strep Screen (02/09/17 20:58) Sodium Chlor 0.9% 1000 Ml Inj (Ns 1000 M (02/09/17 21:45) Acetaminophen (Tylenol) (02/09/17 21:45) Strep Culture (Group A) (02/09/17 21:00) Labs Laboratory Tests Test 02/09/17 02/09/17 18:45 18:50 Urine Color YELLOW Urine Turbidity CLEAR Urine pH 7.0 Urine Specific [place] 1.028 Urine Protein 30 mg/dL Urine Glucose (UA) NEG mg/dL Urine Ketones NEG mg/dL Urine Occult Blood NEG Urine Nitrite NEG Urine Bilirubin NEG Urine Urobilinogen 4.0 MG/DL Urine Leukocyte Esterase NEG Urine RBC 1 /hpf Urine WBC 4 /hpf Urine Squamous Epithelial <1 /hpf Cells Urine Mucus FEW /lpf Microscopic Urinalysis Comment CULT NOT INDICATED White Blood Count 9.0 TH/MM3 Red Blood Count 5.10 MIL/MM3 Hemoglobin 14.8 GM/DL Hematocrit 43.2 % Mean Corpuscular Volume 84.6 FL Mean Corpuscular Hemoglobin 29.0 PG Mean Corpuscular Hemoglobin 34.3 % Concent Red Cell Distribution Width 14.3 % Platelet Count 230 TH/MM3 Mean Platelet Volume 7.6 FL Neutrophils (%) (Auto) 80.2 % Lymphocytes (%) (Auto) 10.8 % Monocytes (%) (Auto) 8.6 % Eosinophils (%) (Auto) 0.1 % Basophils (%) (Auto) 0.3 % Neutrophils # (Auto) 7.2 TH/MM3 Lymphocytes # (Auto) 1.0 TH/MM3 Monocytes # (Auto) 0.8 TH/MM3 Eosinophils # (Auto) 0.0 TH/MM3 Basophils # (Auto) 0.0 TH/MM3 CBC Comment DIFF FINAL Differential Comment Sodium Level 134 MEQ/L Potassium Level 3.7 MEQ/L Chloride Level 99 MEQ/L Carbon Dioxide Level 26.4 MEQ/L Anion Gap 9 MEQ/L Blood Urea Nitrogen 10 MG/DL Creatinine 1.40 MG/DL Estimat Glomerular Filtration 56 ML/MIN Rate Random Glucose 96 MG/DL Lactic Acid Level 2.0 mmol/L Calcium Level 9.2 MG/DL Total Bilirubin 0.9 MG/DL Aspartate Amino Transf 24 U/L (AST/SGOT) Alanine Aminotransferase 36 U/L (ALT/SGPT) Alkaline Phosphatase 90 U/L Total Protein 8.8 GM/DL Albumin 4.1 GM/DL MDM Medical Decision Making Medical Screen Exam Complete: Yes Emergency Medical Condition: Yes Medical Record Reviewed: Yes Interpretation(s) Last Impressions Chest X-Ray 02/09/172018 Signed Impressions: Service Date/Time: Thursday, February 09, 2017 20:40 - CONCLUSION: No acute disease. Dillon Pulido MD Differential Diagnosis Influenza, versus pneumonia, versus strep pharyngitis, versus viral syndrome Narrative Course During the course of the patients emergency department visit, the patients history, examination, and differential diagnosis were reviewed with the patient. The patient had IV access obtained and blood work sent for analysis. The patient was placed on a cardiac surgeon with oximetry and blood pressure monitoring. The patient was initially provided normal saline 1 L IV fluid bolus. Tylenol 650 by mouth times one was provided for fever. The patients laboratory studies were reviewed and remarkable for a white count of 9.0, hemoglobin 14.8, platelets 230 with 80.2 neutrophils, monocytes 8.6, CMP is remarkable for sodium of 134, creatinine 1.40, GFR 56, total protein 8.8 , lactic acid 2.0, urinalysis shows 30 protein, 4 urobilinogen, rapid strep test is negative. Radiology studies were reviewed and remarkable for a chest x-ray shows no acute abnormality. The patient was given a prescription for antibiotic to hold onto and if he continues to have persistent fevers, or his cough becomes productive of yellow- green sputum, the patient was instructed to start the antibiotic. In the meantime, he is given a prescription for benzonatate capsules to be taken as needed for cough. The patient is resting comfortably and feels better, is alert and in no distress. The patients results and examination findings were discussed with the patient. The repeat examination is unremarkable and benign. The history, exam, diagnostic testing, and current condition do not suggest any significant pathology to warrant further testing, continued ED treatment, admission, or surgical evaluation at this point. The vital signs have been stable. The patient does not have uncontrollable pain, intractable vomiting, or other significant symptoms. The patient's condition is stable and appropriate for discharge. The patient will pursue further outpatient evaluation with a primary care physician or other designated or consulting physician as indicated in the discharge instructions. The patient expressed understanding and was agreeable with this plan. Diagnosis Primary Impression: Upper respiratory infection Qualified Code: J06.9 - Upper respiratory tract infection, unspecified type Additional Impression: Fever Qualified Code: R50.81 - Fever in other diseases Referrals: [facility] 3 days Primary Care Physician 3 days Patient Instructions: Fever in Adults (ED), General Instructions, Upper Respiratory Infection (ED) Med/Other Pt SpecificInfo: Prescription(s) given Scripts Benzonatate 100 Mg [id number] Mg PO TID PRN (COUGH) #15 CAP Ref 0 Prov:Lorrie Garland MD 02/09/17 Doxycycline Hyclate 100 Mg [id number] Mg PO BID #20 CAP Ref 0 Prov:Lorrie Garland MD 02/09/17 Disposition: 01 DISCHARGE HOME Condition: Stable Lorrie Garland MD Feb 09, 2017 20:21
--- NOTE | 2017-02-09 21:05 | RADRPT ---
EXAM DATE/TIME: 02/09/2017 20:40 [place] COMPARISON: CTA THORACIC ABDOMINAL AORTA W 3D RECON, September 08, 2016, 17:44. CHEST SINGLE AP, September 08 7, 16:33. INDICATIONS : Fever MEDICAL HISTORY : None. SURGICAL HISTORY : None. ENCOUNTER: Initial ACUITY: 1 day PAIN SCORE: 0/10 LOCATION: Bilateral chest FINDINGS: A single view of the chest demonstrates the lungs to be symmetrically aerated without evidence of mas s, infiltrate or effusion. The cardiomediastinal contours are unremarkable. Osseous structures are intact. CONCLUSION: No acute disease. Dillon Pulido MD on February 09, 2017 at 21:02 Board Certified Radiologist. This report was verified electronically.
[2017-02-09] MEDS ORDERED: ACETAMINOPHEN 325 MG TAB PO ONE (21:45)
[2017-02-09] MEDS ORDERED: SODIUM CHLOR 0.9% 1000 ML INJ 1,000 ML IV ONE (21:45)
[2017-02-09] MEDS ORDERED: BENZ1CAP8 PO (22:09)
[2017-02-09] MEDS ORDERED: DOXY100C PO (22:09)
== END 2017-02-09 22:53 | disposition home or self-care (01) ==
LOC: NEPE 18:24
DX: J06.9 Acute upper respiratory infection, unspecified (principal); Z79.899 Other long term (current) drug therapy
CPT/HCPCS: 71010; 80053; 81001; 83605; 85025; 87040; 87081; 87804; 87880; 96360; 99284; J7030

== ENCOUNTER 2017-12-04 10:10 | Emergency (ER) | payer SELFPAY ==
[~2017-12-04 10:10] MED LIST changes: +BENZ1CAP54 PO; +DOXY100C PO; +IBUP1TAB7 PO; -IBUP800T23 PO
[2017-12-04 10:14] VITALS: BP 103/59; PULSE 70; RESP 14; TEMP 98.4; O2SAT 98
--- NOTE | 2017-12-04 12:03 | PD ---
HPI Chief Complaint: GI Complaint Time Seen by Provider: 11:11 Travel History International Travel<30 days: No Contact w/Intl Traveler<30days: No Traveled to known affect area: No History of Present Illness HPI 42-year-old male that presents to the ED for evaluation of diarrhea. Per patient he had diarrhea all last night. Per patient started on the afternoon and then needs and around 4:00 in the morning. Per patient he had no cramping or pain. Per patient the diarrhea is greenish. Per patient he is never had this before. He denies any other medical issues. No nausea or vomiting. No fevers chills or sweats. Per patient he has not eaten anything new. Per patient he is mainly concerned that he may have an infectious etiology of his diarrhea and he is concerned that he may need antibiotics. He denies any chest pain or shortness of breath. No urinary issues. Per patient the stool is somewhat liquidy. Patient denies eating anything new. No recent travel. Per patient his diet has not changed. He denies any pain. PFSH Past Medical History Arthritis: No Asthma: No Autoimmune Disease: No Blood Disorders: No Anxiety: No Depression: No Heart Rhythm Problems: No Cancer: No Cardiovascular Problems: No High Cholesterol: No Chemotherapy: No Chest Pain: No Congestive Heart Failure: No COPD: No Cerebrovascular Accident: No Diabetes: No Diminished Hearing: No Endocrine: No GERD: No Glaucoma: No Genitourinary: No Headaches: No Hepatitis: No Hiatal Hernia: No Immune Disorder: No Implanted Vascular Access Dvce: No Kidney Stones: No Musculoskeletal: No Neurologic: No Psychiatric: No Reproductive: No Respiratory: No Migraines: No Myocardial Infarction: No Radiation Therapy: No Renal Failure: No Seizures: No Sickle Cell Disease: No Sleep Apnea: No Thyroid Disease: No Ulcer: No Past Surgical History Abdominal Surgery: No AICD: No Appendectomy: No Arteriovenous Shunt: No Cardiac Surgery: No Cholecystectomy: No Ear Surgery: No Endocrine Surgery: No Eye Surgery: Yes Genitourinary Surgery: No Gynecologic Surgery: No Insulin Pump: No Joint Replacement: No Oral Surgery: No Pacemaker: No Thoracic Surgery: No Other Surgery: Yes (facial bone repair) Social History Alcohol Use: No Tobacco Use: No Substance Use: No Allergies-Medications (Allergen,Severity, Reaction): Coded Allergies: green pepper (Unverified Allergy, Mild, 03/18/17) rash Uncoded Allergies: RED AND YELLOW EDWARDS PEPPERS (Allergy, Mild, 03/25/06) Reported Meds & Prescriptions Reported Meds & Active Scripts Active Flagyl (Metronidazole) 500 Mg Tab 500 Mg PO BID 10 Days Benzonatate 100 Mg Cap 200 Mg PO TID PRN Doxycycline Hyclate 100 Mg Cap 100 Mg PO BID Robaxin (Methocarbamol) 750 Mg Tab 750 Mg PO TID PRN Diclofenac Potassium 50 Mg Tab 50 Mg PO TID PRN Ibuprofen 800 Mg Tab 800 Mg PO Q8HR PRN Protonix (Pantoprazole Sodium) 20 Mg Tab 20 Mg PO DAILY Tessalon Perles (Benzonatate) 100 Mg Cap 100 Mg PO TID PRN Review of Systems Except as stated in HPI: all other systems reviewed are Neg Physical Exam Narrative GENERAL: SKIN: Warm and dry. HEAD: Atraumatic. Normocephalic. EYES: Pupils equal and round. No scleral icterus. No injection or drainage. ENT: No nasal bleeding or discharge. Mucous membranes pink and moist. Tongue is midline. No uvula deviation. NECK: Trachea midline. No JVD. CARDIOVASCULAR: Regular rate and rhythm. No murmurs, S3, S4. RESPIRATORY: No accessory muscle use. Clear to auscultation. Breath sounds equal bilaterally. GASTROINTESTINAL: Abdomen soft, non-tender, nondistended. Hepatic and splenic margins not palpable. MUSCULOSKELETAL: Extremities without clubbing, cyanosis, or edema. No obvious deformities. Full range of motion of the upper and lower extremities bilaterally. 2+ pulses bilaterally. NEUROLOGICAL: Awake and alert. No obvious cranial nerve deficits. Motor grossly within normal limits. Five out of 5 muscle strength in the arms and legs. Normal speech. PSYCHIATRIC: Appropriate mood and affect; insight and judgment normal. Data Data Last Documented VS Vital Signs Date Time Temp Pulse Resp B/P (MAP) Pulse Ox O2 Delivery O2 Flow Rate FiO2 12/04/17 10:14 98.4 70 14 103/59 (74) 98 Orders Orders Complete Blood Count With Diff (12/04/17 11:15) Comprehensive Metabolic Panel (12/04/17 11:15) Lipase (12/04/17 11:15) Prothrombin Time / Inr (Pt) (12/04/17 11:15) Act Partial Throm Time (Ptt) (12/04/17 11:15) Iv Access Insert/Monitor (12/04/17 11:15) Stool Ova And Parasite Screen (12/04/17 11:30) Enteric Path (Stool) (12/04/17 11:30) Stool Afb Culture And Stain (12/04/17 11:30) Ed Discharge Order (12/04/17 13:35) Labs Laboratory Tests Test 12/04/17 12:10 White Blood Count 5.0 TH/MM3 Red Blood Count 5.01 MIL/MM3 Hemoglobin 14.6 GM/DL Hematocrit 42.7 % Mean Corpuscular Volume 85.1 FL Mean Corpuscular Hemoglobin 29.1 PG Mean Corpuscular Hemoglobin Concent 34.2 % Red Cell Distribution Width 14.4 % Platelet Count 226 TH/MM3 Mean Platelet Volume 7.7 FL Neutrophils (%) (Auto) 66.9 % Lymphocytes (%) (Auto) 22.1 % Monocytes (%) (Auto) 8.5 % Eosinophils (%) (Auto) 1.8 % Basophils (%) (Auto) 0.7 % Neutrophils # (Auto) 3.4 TH/MM3 Lymphocytes # (Auto) 1.1 TH/MM3 Monocytes # (Auto) 0.4 TH/MM3 Eosinophils # (Auto) 0.1 TH/MM3 Basophils # (Auto) 0.0 TH/MM3 CBC Comment DIFF FINAL Differential Comment Prothrombin Time 10.4 SEC Prothromb Time International Ratio 1.0 RATIO Activated Partial Thromboplast Time 27.1 SEC Blood Urea Nitrogen 11 MG/DL Creatinine 1.09 MG/DL Random Glucose 78 MG/DL Total Protein 7.3 GM/DL Albumin 3.7 GM/DL Calcium Level 8.9 MG/DL Alkaline Phosphatase 73 U/L Aspartate Amino Transf (AST/SGOT) 22 U/L Alanine Aminotransferase (ALT/SGPT) 25 U/L Total Bilirubin 0.4 MG/DL Sodium Level 138 MEQ/L Potassium Level 4.3 MEQ/L Chloride Level 105 MEQ/L Carbon Dioxide Level 26.6 MEQ/L Anion Gap 6 MEQ/L Estimat Glomerular Filtration Rate 75 ML/MIN Lipase 219 U/L MDM Medical Decision Making Medical Screen Exam Complete: Yes Emergency Medical Condition: Yes Medical Record Reviewed: Yes Interpretation(s) CBC & BMP Diagram 12/04/17 12:10 Total Protein 7.3, Albumin 3.7, Calcium Level 8.9, Alkaline Phosphatase 73, Aspartate Amino Transf (AST/SGOT) 22, Alanine Aminotransferase (ALT/SGPT) 25, Total Bilirubin 0.4 Differential Diagnosis Diarrhea versus infectious diarrhea versus dehydration versus liver disease versus gallbladder disease Narrative Course 42-year-old male that presents to the ED for evaluation of greenish diarrhea. Patient was properly examined and was found to have signs and symptoms of unclear etiology. Patient's physical exam is benign. The recommend some basic labs. I did offer patient to do a stool study if he can give us a sample. He states that he does not know if he will be able to get one. Labs were essentially unremarkable for acute disease. At this time I recommend trial of Flagyl to cover for bacterial infection although this appears to be less likely. Patient was told to watch for blood in the stool or abdominal pain. See ED if worsening symptoms. Follow-up with PCP. Diagnosis Primary Impression: Diarrhea in adult patient Patient Instructions: General Instructions Additional Instructions: Drink plenty of fluids. Follow-up with PCP. See ED worsening symptoms. Antibiotic might give you discoloration of the urine to an orange color this is normal. He will go away once the medication is stopped. Med/Other Pt SpecificInfo: Prescription(s) given Scripts Metronidazole (Flagyl) 500 Mg Tab 500 MG PO BID for Infection for 10 Days, #20 TAB 0 Refills Prov: Renata Hyatt MD 12/04/17 Disposition: 01 DISCHARGE HOME Condition: Stable Jessee Ospina December 04, 2017 12:03
[2017-12-04] MEDS ORDERED: METR-1 PO (12:37)
[2017-12-04 13:04] LABS: AUTOMATED NEUTROPHIL # 3.4 TH/MM3 (1.8-7.7); BASOPHIL % 0.7 % (0.0-2.0); EOSINOPHIL # 0.1 TH/MM3 (0-0.4); EOSINOPHIL % 1.8 % (0.0-4.0); HEMATOCRIT 42.7 % (39.0-51.0); HEMOGLOBIN 14.6 GM/DL (13.0-17.0); LYMPH % 22.1 % (9.0-44.0); LYMPHOCYTE # 1.1 TH/MM3 (1.0-4.8); MEAN CELL VOLUME 85.1 FL (80.0-100.0); MEAN CORPUSCULAR HEMOGLOBIN 29.1 PG (27.0-34.0); MEAN CORPUSCULAR HGB CONC 34.2 % (32.0-36.0); MEAN PLATELET VOLUME 7.7 FL (7.0-11.0); MONO % 8.5 % (0.0-8.0); MONOCYTE # 0.4 TH/MM3 (0-0.9); NEUT % 66.9 % (16.0-70.0); PLATELET COUNT 226 TH/MM3 (150-450); RED BLOOD COUNT 5.01 MIL/MM3 (4.50-5.90); RED CELL DISTRIBUTION WIDTH 14.4 % (11.6-17.2)
[2017-12-04 13:16] LABS: PROTHROMBIN TIME - PATIENT 10.4 SEC (9.8-11.6)
[2017-12-04 13:20] LABS: ALT (GPT) 25 U/L (12-78)
[2017-12-04 13:23] LABS: ALKALINE PHOSPHATASE 73 U/L (45-117); TOTAL BILIRUBIN ADULT 0.4 MG/DL (0.2-1.0); TOTAL PROTEIN 7.3 GM/DL (6.4-8.2)
[2017-12-04 13:27] LABS: ALBUMIN 3.7 GM/DL (3.4-5.0); AST (GOT) 22 U/L (15-37); BICARBONATE 26.6 MEQ/L (21.0-32.0); BLOOD UREA NITROGEN 11 MG/DL (7-18); CALCIUM 8.9 MG/DL (8.5-10.1); CHLORIDE 105 MEQ/L (98-107); CREATININE 1.09 MG/DL (0.60-1.30); GLOMERULAR FILTRATION RATE 75 ML/MIN (>89); GLUCOSE,RANDOM 78 MG/DL (74-106); SODIUM (NA) 138 MEQ/L (136-145)
== END 2017-12-04 14:11 | disposition home or self-care (01) ==
LOC: NEPC 10:10
DX: R19.7 Diarrhea, unspecified (principal)
CPT/HCPCS: 80053; 83690; 85025; 85610; 85730; 87015; 99283